=== PATIENT | male | born 1970 | race Caucasian/White ===

== ENCOUNTER → 2017-05-12 | Outpatient (CLI) | payer MEDICARE, OTHER ==
--- NOTE | 2017-05-12 23:14 | MR ---
EXAMINATION TYPE: MR cervical spine wo/w con DATE OF EXAM: 05/12/2017 COMPARISON: NONE HISTORY: 46-year-old male Cervical radiculopathy, weakness, loss of leg movement Technique: Multiplanar, multisequence images of the cervical spine were obtained before and after adm inistration of 13 mL intravenous Gadavist gadolinium contrast. FINDINGS: The craniocervical junction abnormality, predental space widening, or prevertebral soft tissue swelli ng. Incidental megacisterna magna. Postsurgical changes of C3-C6 ACDF. There is congenital spinal canal stenosis with AP canal dimension of 9 mm. Disc desiccation above and below the fusion at C2-C3 and C6-C7. Minimal bulging disc at C6-C7. The mild spinal canal stenosis is greatest at C3-C4 secondary to some residual posterior osteophytic ridging and there is abutment of the dorsal and ventral cord at this level. No cord compression or T2 weighted cord signal abnormality. At C2-C3, there is facet arthropathy with no significant foraminal stenosis. At C3-C4, there is facet and uncovertebral joint hypertrophy with mild bilateral neuroforaminal steno sis. At C4-C5, facet and uncovertebral joint hypertrophy with mild to moderate right and mild left neurofo raminal stenosis. At C5-C6, facet and uncovertebral joint arthropathy with moderate to severe left and moderate right n euroforaminal stenosis. At C6-C7, facet arthropathy with mild left neuroforaminal stenosis. At C7-T1, mild facet arthropathy without significant foraminal or canal stenosis. No prevertebral or paravertebral soft tissue abnormality seen. No abnormal enhancement within the spinal canal. No cervical cord signal abnormality. IMPRESSION: 1. Status post C3-C6 ACDF. 2. There is underlying congenital spinal canal stenosis with mild spinal canal stenosis along the fus ed levels, greatest at C3-C4 secondary to some residual posterior osteophytic ridging. There is abutm ent of the dorsal and ventral cord at this level without cord compression or milind canal compromise. 3. Facet and uncovertebral joint hypertrophic changes causing variable neural foraminal stenosis as o utlined above, moderate on the right at C4-C5, moderate to severe on the left at C5-C6, and moderate on the right at C5-C6.
== END | disposition home or self-care (01) ==
LOC: RADMRIMAIN 20:25
PROVIDERS: ATTEND Neurological Surgery
DX: M48.02 Spinal stenosis, cervical region (principal); M99.71 Connective tissue and disc stenosis of intervertebral foramina of cervical region
CPT/HCPCS: 72156; A9581

== ENCOUNTER → 2024-02-12 | Outpatient (CLI) | payer MEDICARE, OTHER ==
[~2024-02-12] MED LIST: IODINE/POTASSIUM IODIDE 14 ML BOTTLE ONE
--- NOTE | 2024-03-23 13:50 | NM ---
Report Patient: José Miguel Patterson Ordering Physician: Unknown, Unknown ID: [id number] Phone, Pager: Phone: N/A Pager: N/A : 1970 Age/Gender: 53Y, M Primary Location: N/A Procedure: NM DatScan Brain SPECT Study Date: 02/12/2024 2:35:00 PM EXAMINATION TYPE: NM DatScan Brain SPECT DATE OF EXAM: 02/29/2024 COMPARISON: NONE CLINICAL INDICATION: 53-year-old male R25.8, R25.1, M62.81, tremors, bradykinesia, right leg weakness TECHNIQUE: 10 drops of Lugol's solution was administered 1 hour prior to injection as a thyroid bloc [place] agent. After the administration of 4.72 mCi I-123 Ioflupane DaTscan. Images obtained hours pos t injection. SPECT images of the brain were acquired with axial and coronal reconstructions. FINDINGS: There is blunted bilateral striatal activity, left greater the right. Background activity is normal t o minimally increased. IMPRESSION: Slightly reduced uptake to the left striatum and possibly a minor reduction to the right. Findings us ually supportive of a clinical diagnosis of either idiopathic Parkinson's disease or parkinsonian syn drome.
== END | disposition home or self-care (01) ==
LOC: RADNMMAIN 10:17
PROVIDERS: ATTEND Psychiatry & Neurology Neurology
DX: R25.8 Other abnormal involuntary movements (principal); R25.1 Tremor, unspecified; M62.81 Muscle weakness (generalized)
CPT/HCPCS: 78803; A9584